=== PATIENT | male | born 1970 | race Two or more races ===

== ENCOUNTER 2017-09-21 17:40 | Emergency (ER) | payer OTHER ==
[2017-09-21 17:53] VITALS: BP 150/98
--- NOTE | 2017-09-21 18:23 | RADIOLOGY REPORT (SQ) ---
EXAM DESCRIPTION: HAND RIGHT 3 VIEWS COMPLETED DATE/TIME: 09/21/2017 6:12 pm REASON FOR STUDY: R hand injury/ pain COMPARISON: None. EXAM PARAMETERS: NUMBER OF VIEWS: Three views. TECHNIQUE: AP, lateral and oblique radiographic images acquired of the right hand. LIMITATIONS: None. FINDINGS: MINERALIZATION: Normal. BONES: Nondisplaced fractures seen of the distal tuft of the ring and little fingers. JOINTS: Joint narrowing noted IP joints of the fingers. SOFT TISSUES: No metallic foreign bodies. OTHER: No other significant finding. IMPRESSION: Nondisplaced fractures distal aurora of the ring and little fingers. TECHNICAL DOCUMENTATION: JOB ID: [id number] [employer]- All Rights Reserved
[2017-09-21] MEDS ORDERED: CEPHALEXIN 500 MG CAPSULE PO ONE (19:20)
[2017-09-21] MEDS ORDERED: ACETAMINOPHEN 325 MG TABLET PO ONE (19:21)
[2017-09-21] MEDS ORDERED: IBUPROFEN 800 MG TABLET PO ONE (19:21)
--- NOTE | 2017-09-21 19:21 | ER Document Report ---
HPI - HPI Patient complains to provider of: crushed 4th and 5th right fingertips at work Onset: This evening Onset/Duration: Sudden Pain Level: 4 Context: 47 yo male crushed 4th and 5th fingertips at work. Tetanus not current. - CONSTITUTIONAL Constitutional: DENIES: Fever, Chills - MUSCULOSKELETAL Musculoskeletal: REPORTS: Extremity pain - right fingers Past Medical History - General Information source: Patient - Social History Smoking Status: Current Every Day Smoker Frequency of alcohol use: every 3 weeks Drug Abuse: None Lives with: Family Family History: Reviewed & Not Pertinent Patient has suicidal ideation: No Patient has homicidal ideation: No - Medical History Medical History: Negative Renal/ Medical History: Denies: Hx Peritoneal Dialysis Surgical Hx: Negative Vertical Provider Document - CONSTITUTIONAL Agree With Documented VS: Yes Exam Limitations: No Limitations - INFECTION CONTROL TRAVEL OUTSIDE OF THE [place] IN LAST 30 DAYS: No - HEENT HEENT: Normocephalic - NECK Neck: Supple - RESPIRATORY O2 Sat by Pulse Oximetry: 94 - MUSCULOSKELETAL/EXTREMETIES Musculoskeletal/Extremeties: MAEW, FROM, Tender - distal 4th and 5th right fingertips, all tendons function normally, 3mm abrasion ulnar side 5th fingertip , no subungual hematoma's, N/V intact - NEURO Level of Consciousness: Awake, Alert, Appropriate Motor/Sensory: No Motor Deficit, No Sensory Deficit - DERM Integumentary: Laceration - see above Course - Vital Signs Vital signs: Temp Pulse Resp BP Pulse Ox 98.5 F 78 20 150/98 H 94 09/21/17 17:52 09/21/17 17:52 09/21/17 17:52 09/21/17 17:52 09/21/17 17:52 Procedures - Immobilization Right Finger Time completed: 20:25 Pre-Proc Neuro Vasc Exam: Normal Immobilizer type: Finger splint (Static) - 4th and 5th right finger tips Performed by: RN Post-Proc Neuro Vasc Exam: Normal Alignment checked and good: Yes Discharge - Discharge Clinical Impression: 4th, 5th tuft fractures, small laceration 5th ulnar finger Condition: Good Disposition: HOME, SELF-CARE Instructions: Cephalexin ([facility]), Crush Injury ([facility]), Hand Laceration ([facility]), Open Finger Tuft Fracture ([facility]), Splint Precautions ([facility]), Tuft Fracture of the Finger ([facility]) Additional Instructions: see the orthopedic doctor for follow up, call tomorrow for appointment wound check in 48 hours, sooner if worse take the antibiotics until gone keep the splints on motrin and tylenol for pain Prescriptions: Ibuprofen [Motrin 800 mg Tablet] 800 mg PO Q8HP PRN #30 tablet PRN Reason: Cephalexin Monohydrate [Keflex 500 mg Capsule] 500 mg PO QID #28 capsule Forms: Restricted Release Referrals: CANDICE HORNER DO [ACTIVE STAFF] - Follow up tomorrow (call tomorrow for appointment this week)
[2017-09-21] MEDS ORDERED: DIPH/PERTUSS(ACELL)/TETANUS VAC/PF 0.5 ML SYR (>=10YO) IM ONE (19:58)
== END 2017-09-21 20:19 | disposition home or self-care (01) ==
LOC: ER 17:40
DX: S62.664A Nondisplaced fracture of distal phalanx of right ring finger, initial encounter for closed fracture (principal); S62.666A Nondisplaced fracture of distal phalanx of right little finger, initial encounter for closed fracture; W23.0XXA Caught, crushed, jammed, or pinched between moving objects, initial encounter; Y99.0 Civilian activity done for income or pay; Z23 Encounter for immunization; F17.200 Nicotine dependence, unspecified, uncomplicated
CPT/HCPCS: 90471; 90715; 99283